=== PATIENT | male | born 1985 | race African-American/Black ===

== ENCOUNTER 2024-07-27 15:57 | Emergency (ER) | payer OTHER, SELFPAY ==
[2024-07-27 16:22] VITALS: BP 122/76; PULSE 70; TEMP 36.7; O2SAT 99; BMI 29.6
--- NOTE | 2024-07-27 16:40 | XR_ITS ---
The [address] [address] Patient Name: TAPAN KAMARA MRN: [id number] date: 1985 Sex: M Assigned Patient Location: ER Current Patient Location: Accession/Order Number: [id number] Exam Date: 07/27/2024 17:30 Report Date: 07/27/2024 19:23 At the request of: RIMMA GALAN Procedure: XR hand MICHAEL min 3v Exam: Radiographs: XR hand MICHAEL min 3v Reason for exam: injury Comparison: None XR/XR hand MICHAEL min 3v IMPRESSION: Unremarkable right hand radiographs. Unremarkable left hand radiographs. Electronically authenticated by: LB ASH Date: 07/27/2024 19:23
--- NOTE | 2024-07-27 18:28 | ED_ITS ---
HPI HPI - Extremity Injury (Upper) General Chief Complaint: Extremity Injury, Upper Stated Complaint: Upper Injury Time Seen by Provider: 07/27/24 18:16 History of Present Illness HPI narrative: pt was carrying a dresser and the rug on the steps moved and he lost his footing. the dresser came down on his right hand and he now has pain and swelling to the dorsum of the right hand and the right wrist. This occurred around 11am. No other injuries. Nothing taken for pain at home. Related Data Home Medications ?Medication ?Instructions ?Recorded ?Confirmed albuterol sulfate 2.5 mg/3 mL 5 mg continuous nebulization Q6H 07/27/24 07/27/24 (0.083 %) solution for nebulization PRN bronchospasm albuterol sulfate 90 mcg/actuation 2 inh inhalation Q4H PRN 07/27/24 07/27/24 aerosol inhaler bronchospasm aripiprazole 2 mg tablet 2 mg PO DAILY 07/27/24 07/27/24 buspirone 5 mg tablet 5 mg PO DAILY 07/27/24 07/27/24 cetirizine 10 mg tablet 10 mg PO DAILY 07/27/24 07/27/24 sertraline 50 mg tablet (Zoloft) 50 mg PO DAILY 07/27/24 07/27/24 Allergies Allergy/AdvReac Type Severity Reaction Status Date / Time acetaminophen (From Vicodin) Allergy Intermediate Difficulty Verified 07/27/24 16:17 Breathing cyclobenzaprine (From Allergy Intermediate Agitated Verified 07/27/24 16:18 Flexeril) hydrocodone (From Vicodin) Allergy Intermediate Difficulty Verified 07/27/24 16:17 Breathing cephalexin (From Keflex) Allergy Mild Agitated Verified 07/27/24 16:18 prochlorperazine (From Allergy Mild Nose Bleed Verified 07/27/24 16:18 Compazine) powdered inhalers Allergy Intermediate nose bleeds Uncoded 07/27/24 16:17 Opioid HPI Opioid Management Most Recent Pain and Opioid Data: Last Pain Scale 3 07/27/24 18:51 07/27/24 Last ED Pain Assessment 07/27/24 18:51 Last MAR Pain Assessment 07/27/24 18:50 PFSH PFSH Social History Little interest or pleasure in doing things: not at all Feeling down, depressed, or hopeless: not at all Exam Narrative Exam Narrative: Nurses note and vital signs reviewed and patient is not hypoxic. afebrile General: The patient appears well and in no apparent distress. Patient is resting comfortably on cart. GCS = 15. Skin: Warm, dry, no pallor noted. Head: Normocephalic, atraumatic Eyes: PERRLA, EOMI Cardiovascular: Normal peripheral perfusion Respiratory: Patient is in no distress, no accessory muscle use Musculoskeletal: Tenderness on palpation throughout the dorsum of the right hand. Mild swelling but no ecchymosis is noted. He has normal range of motion of the fingers of the right hand and right wrist. Moves all four extremities in all modalities with 5/5 strength. Neurological: A&O x4, normal equal tig welder strength, normal finger to nose, normal speech, normal coordination, normal motor, normal sensory. Psychiatric: Cooperative Constitutional Vital Signs, click to edit/add: Last Vital Signs Temp 98.0 F 07/27/24 16:22 Pulse 70 07/27/24 16:22 Resp 16 07/27/24 16:22 BP 122/76 07/27/24 16:22 Pulse Ox 99 07/27/24 16:22 O2 Del Method Room Air 07/27/24 16:22 Course Vital Signs Vital signs: Vital Signs Temperature 98.0 F 07/27/24 16:22 Pulse Rate 70 07/27/24 16:22 Respiratory Rate 16 07/27/24 16:22 Blood Pressure 122/76 07/27/24 16:22 Pulse Oximetry 99 07/27/24 16:22 Oxygen Delivery Method Room Air 07/27/24 16:22 Temperature 98.0 F 07/27/24 16:22 Pulse Rate 70 07/27/24 16:22 Respiratory Rate 16 07/27/24 16:22 Blood Pressure 122/76 07/27/24 16:22 Pulse Oximetry 99 07/27/24 16:22 Oxygen Delivery Method Room Air 07/27/24 16:22 MDM - Extremity Injury (Upper) MDM Narrative Medical decision making narrative: X-rays of the right hand were evaluated by me. No fracture identified. Patient informed of negative results, given Toradol for discharge and a work excuse. The ED nurse applied an Jeremie wrap to the patient's right hand. Discharge Plan Discharge Chief Complaint: Extremity Injury, Upper Clinical Impression: Contusion of dorsum of right hand, Right wrist sprain Patient Disposition: Home, Self-Care Time of Disposition Decision: 18:33 Prescriptions / Home Meds: No Action buspirone 5 mg tablet 5 mg PO DAILY albuterol sulfate 2.5 mg /3 mL (0.083 %) solution for nebulization 5 mg continuous nebulization Q6H PRN (Reason: bronchospasm) albuterol sulfate 90 mcg/actuation HFA aerosol inhaler 2 inh INHALATION Q4H PRN (Reason: bronchospasm) aripiprazole 2 mg tablet 2 mg PO DAILY cetirizine 10 mg tablet 10 mg PO DAILY sertraline [Zoloft] 50 mg tablet 50 mg PO DAILY Print Language: Macedonian Instructions: Contusion in Adults (ED), Wrist Sprain (ED) Referrals: [facility] [Primary Care Provider] - 1 week Discharge Date/Time: 07/27/24 19:01
[2024-07-27] MEDS: KETOROLAC TROMETHAMINE 10 MG TABLET PO (18:50)
== END 2024-07-27 19:01 | disposition home or self-care (01) ==
PROVIDERS: Emergency Provider Emergency Medicine
DX: S60.221A Contusion of right hand, initial encounter (principal); S63.501A Unspecified sprain of right wrist, initial encounter; W22.8XXA Striking against or struck by other objects, initial encounter
CPT/HCPCS: 73130; 99283